=== PATIENT | female | born 1995 | race Asian ===

== ENCOUNTER 2016-08-07 12:41 | Emergency (ER) | payer MEDICAID ==
--- NOTE | 2016-08-07 13:10 | EDPHY ---
H & P Time Seen by Provider: 08/07/16 13:08 HPI/ROS: CHIEF COMPLAINT: Cough, congestion. HISTORY OF PRESENT ILLNESS: This is a 21-year-old female presents with cough and chest discomfort. 1 week ago, she developed nasal congestion. Yesterday she also developed a cough and chest pain with coughing. She feels a "heaviness " in her lower chest. She has not had a sore throat or shortness of breath. No fever, chills, myalgia. 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 REVIEW OF SYSTEMS: A complete 10-point review of systems was performed and is negative except for those items mentioned in the HPI. Past Medical/Surgical History: Denies. Social History: Nonsmoker. Smoking Status: Never smoked Physical Exam: General Appearance: Alert, well-appearing Eyes: Pupils equal and round, no conjunctival injection ENT, Mouth: Pharyngeal erythema, mucous membranes moist Neck: Normal inspection Respiratory: Normal respiratory rate, Diffuse expiratory wheezing. Cardiovascular: Regular rate and rhythm Gastrointestinal: Abdomen is soft and non-tender Neurological: A&O, nonfocal, normal gait Skin: Warm and dry, no rash Extremities: Normal inspection Psychiatric: Mood and affect normal Constitutional: Initial Vital Signs Temperature (C) 36.8 C 08/07/16 12:48 Heart Rate 112 H 08/07/16 12:48 Respiratory Rate 22 H 08/07/16 12:48 Blood Pressure 151/101 H 08/07/16 12:48 O2 Sat (%) 94 08/07/16 12:48 O2 Delivery Mode Room Air Allergies/Adverse Reactions: No Known Allergies Allergy (Unverified 08/07/16 12:48) Home Medications: Medication Instructions Recorded Albuterol 2 puffs IH TID PRN #1 aerosol 08/07/16 predniSONE 40 mg PO DAILY #8 tab 08/07/16 Medical Decision Making - Diagnostics Imaging: Chest x-ray reviewed by me reveals no acute disease. ED Course/Re-evaluation: This patient presents with bronchospasm, either secondary to allergic reaction to dogs or to a viral syndrome. Chest x-ray obtained. DuoNeb treatment administered. 1332: Reassessed patient and informed her of the negative results of her X-ray. 1352: Reassessed patient after DuoNeb treatment. Lungs are clear and she is feeling better. cp has resolved. - Data Points Medications Given: Discontinued Medications Albuterol/Ipratropium (Duoneb) 3 ml IH EDNOW ONE Stop: 08/07/16 13:29 Last Admin: 08/07/16 13:44 Dose: 3 ml Prednisone (Prednisone) 40 mg PO EDNOW ONE Stop: 08/07/16 13:54 Last Admin: 08/07/16 14:15 Dose: 40 mg Departure - Departure Disposition: Home, Routine, Self-Care Clinical Impression: Bronchospasm Acute bronchitis Qualifiers: Bronchitis organism: unspecified organism Qualified Code(s): J20.9 - Acute bronchitis, unspecified Condition: Good Instructions: Acute Bronchitis (ED), Bronchospasm (ED) Additional Instructions: Use the inhaler as instructed. You may be allergic to the dogs at your new workplace, or you may have a viral bronchitis causing wheezing. I suggest that you do not return to work until your symptoms have completely resolved. Follow up with a primary care provider in the next 3-4 days. You have been given the telephone number of the on-call outpatient doctor if you need one. Return to the emergency department for any serious worsening of condition. Referrals: Aron Mcconnell MD [Medical Doctor] - As per Instructions Prescriptions: Albuterol 2 puffs IH TID PRN #1 aerosol PRN Reason: Wheezing predniSONE 40 mg PO DAILY #8 tab Report Scribed for: Tg Brady Report Scribed by: Jorge Small Date of Report: 08/07/16 Time of Report: 13:24 Physician Review and Approval Statement: 08/07/16 13:10 Portions of this note were transcribed by a neuropsychology medical consultant. I personally performed a history, physical exam, medical decision making, and confirmed accuracy of information the transcribed note.
[2016-08-07] MEDS ORDERED: IPRATROPIUM/ALBUTEROL 3 ML DEYVIAL ONE (13:27)
[2016-08-07] MEDS ORDERED: IPRATROPIUM/ALBUTEROL 3 ML DEYVIAL IH ONE (13:28)
[2016-08-07] MEDS ORDERED: predniSONE 20 MG TAB PO ONE (13:53)
[2016-08-07 14:20] VITALS: BP 128/73; PULSE 93; RESP 18; TEMP 98.6; O2SAT 97
== END 2016-08-07 14:16 | disposition home or self-care (01) ==
DX: J20.9 Acute bronchitis, unspecified (principal)